=== PATIENT | female | born 2000 | race Caucasian/White ===

== ENCOUNTER 2024-07-08 00:32 | Emergency (ER) | payer BC ==
[~2024-07-08] VITALS: Ht 160 cm; Wt 79.4 kg
[2024-07-08 02:19] LABS: BASOPHILS % (AUTO) 0.2 % (0.0-2.0); EOSINOPHILS # (AUTO) 0.1 K/uL (0.0-0.7); EOSINOPHILS % (AUTO) 1.1 % (0.0-6.0); HEMATOCRIT 42 % (33-45); HEMOGLOBIN 14.2 g/dL (11.5-14.8); LYMPHOCYTES # (AUTO) 0.4 K/uL (0.8-4.8); MEAN CORPUSCULAR HEMOGLOBIN 30 PG (26.0-33.0); MEAN CORPUSCULAR HGB CONC 34 g/dl (31.0-36.0); MEAN CORPUSCULAR VOLUME 89 fL (82-100); MONOCYTES # (AUTO) 0.4 K/uL (0.1-1.30); MONOCYTES % (AUTO) 5.8 % (2.0-12.0); NEUTROPHILS # (AUTO) 6.4 K/uL (1.8-8.9); NEUTROPHILS % (AUTO) 86.9 % (43.0-81.0); PLATELET COUNT (AUTO) 296 K/uL (150-450); RED BLOOD CELL COUNT(AUTO) 4.74 MIL/uL (4.0-5.2); RED CELL DISTRIBUTION WIDTH 13.1 % (11.5-15.0); WHITE BLOOD COUNT (AUTO) 7.4 K/uL (4.3-11.0)
[2024-07-08 02:27] LABS: CALCIUM, SERUM 8.1 mg/dL (8.5-10.1); CREATININE 0.7 mg/dL (0.6-1.3); POTASSIUM 3.8 mmol/L (3.5-5.1)
[2024-07-08 02:31] LABS: PREGNANCY TEST URINE QUAL NEGATIVE (NEGATIVE)
[2024-07-08 02:32] LABS: APPEARANCE,URINE SLIGHTLY CLOUDY (CLEAR); BILIRUBIN,URINE NEGATIVE (NEGATIVE); BLOOD, URINE NEGATIVE Ery/uL (NEGATIVE); COLOR,URINE YELLOW (YELLOW); KETONES,URINE 1+ mg/dL (NEGATIVE); LEUKOCYTE ESTERASE ,URINE 1+ (NEGATIVE); NITRITE, URINE NEGATIVE (NEGATIVE); PROTEIN,URINE TRACE mg/dl (NEGATIVE); UGLUCOSE NEGATIVE (NEGATIVE); UROBILINOGEN,URINE 0.2 EU/dL (0.2)
[2024-07-08 02:33] LABS: ADD URINE CULTURE YES; BACTERIA,URINE Few /HPF (None Seen); SQUAMOUS EPITHELIAL CELL,UR Rare /HPF (None Seen)
[2024-07-08 02:33] LABS: ALBUMIN 3.6 g/dL (3.4-5.0); BILIRUBIN,DIRECT 0.1 mg/dL (0.0-0.2); BILIRUBIN,TOTAL 0.3 mg/dL (0.2-1.0); TOTAL PROTEIN, SERUM 7.2 g/dL (6.4-8.2)
[2024-07-08] MEDS ORDERED: NAPROXEN 250 MG TABLET ONE (03:10)
[2024-07-08] MEDS ORDERED: DICYCLOMINE HCL 10 MG CAPSULE PO ONE (03:10)
[2024-07-08] MEDS ORDERED: ONDANSETRON 4 MG TAB.RAPDIS ONE (03:11)
[2024-07-08] MEDS ORDERED: ONDA4TAB11 PO (03:12)
[2024-07-08] MEDS ORDERED: CEPH500T PO (03:12)
[2024-07-08] MEDS ORDERED: DICY10CA37 PO (03:12)
[2024-07-08] MEDS: NAPROXEN 250 MG TABLET PO ONE (03:14)
[2024-07-08] MEDS: DICYCLOMINE HCL 10 MG CAPSULE PO ONE (03:14)
[2024-07-08] MEDS: ONDANSETRON 4 MG TAB.RAPDIS SL ONE (03:14)
[2024-07-08 05:08] VITALS: BP 126/78; TEMP 98; O2SAT 99
== END 2024-07-08 03:45 | disposition home or self-care (01) ==
LOC: ER 00:37
DX: R10.84 Generalized abdominal pain (principal); R50.9 Fever, unspecified; Z87.442 Personal history of urinary calculi
CPT/HCPCS: 99284; 85025; 80048; 83690; 80076; 84703; 81001; 36415; Q0162